=== PATIENT | female | born 1970 | race Caucasian/White ===

== ENCOUNTER 2020-02-18 15:05 | Emergency (ER) | payer MEDICAID ==
[~2020-02-18] VITALS: Ht 160 cm; Wt 73.7 kg
[2020-02-18] MEDS ORDERED: methylPREDNISolone SOD SUCC 125 MG/2 ML IM ONE (15:30)
[2020-02-18] MEDS ORDERED: FAMOTIDINE 20 MG TABLET PO ONE (15:30)
[2020-02-18] MEDS ORDERED: DIPHENHYDRAMINE 25 MG CAPSULE PO ONE (15:30)
--- NOTE | 2020-02-18 15:36 | NUR ---
Pt to room from [facility]. Pt c/o "bad teeth. All my teeth are bad". Pt reports L upper dental pain x2 days after "getting poked in the gum by a chip" x2 days ago. Pt reports swelling in upper lip and sinuses since yesterday. Pt reports hx asthma, is on a 5 day course of prednisone currently due to an asthma exacerbation which is causing her SOB and cough. Pt reports that her SOB and cough are unchanged since the facial swelling started. Pt placed in gown, positioned for comfort in bed. Continuous oxygen and BP Monitors applied, all safety measures observed.
[2020-02-18] MEDS ORDERED: PLEASE ENTER ALLERGIES MC SCH (16:00)
--- NOTE | 2020-02-18 16:17 | NUR ---
Dr. Vega at bedside to evaluate pt.
[2020-02-18 16:43] VITALS: BP 122/72
== END 2020-02-18 16:45 | disposition home or self-care (01) ==
LOC: ED 16:40
DX: K02.9 Dental caries, unspecified (principal); L03.211 Cellulitis of face; R51.9 Headache, unspecified; J45.909 Unspecified asthma, uncomplicated
CPT/HCPCS: 99283